=== PATIENT | male | born 1995 | race African-American/Black ===

== ENCOUNTER 2025-06-20 02:49 | Emergency (ER) | payer SELFPAY ==
[~2025-06-20] VITALS: Ht 188 cm; Wt 104.0 kg
[2025-06-20 03:02] VITALS: O2SAT 99
[2025-06-20] MEDS: ACETAMINOPHEN 325MG TABLET PO ONE (06:38)
[2025-06-20] MEDS ORDERED: TOPUD PO (07:31)
[2025-06-20 07:56] VITALS: BP 148/89; PULSE 58; RESP 16; TEMP 36.7; O2SAT 99
== END 2025-06-20 08:01 | disposition home or self-care (01) ==
LOC: ER 03:02
DX: S00.03XA Contusion of scalp, initial encounter (principal); J45.909 Unspecified asthma, uncomplicated; W22.8XXA Striking against or struck by other objects, initial encounter; Y93.89 Activity, other specified; Y92.89 Other specified places as the place of occurrence of the external cause; Y99.8 Other external cause status
CPT/HCPCS: 99284